=== PATIENT | male | born 1955 | race Caucasian/White ===

== ENCOUNTER 2022-10-06 10:11 | Emergency (ER) | payer BC ==
[2022-10-06 10:32] LABS: Absolute Lymphocytes (CBC) 1.8 K/uL (0.7-4.9); Hematocrit 45.4 % (39.6-49.0); Lymphocytes % 27.2 % (15.3-44.8); MCV 83.8 fL (80-100); MPV 7.4 fL (7.6-11.3); RBC Red Blood Cell Count 5.42 M/uL (4.33-5.43)
[2022-10-06 10:46] LABS: Protime INR 0.96
[2022-10-06 10:48] LABS: Potassium 3.6 mmol/L (3.5-5.1)
--- NOTE | 2022-10-06 10:51 | RAD REPORT ---
EXAM DESCRIPTION: CT - Ct Stroke Brain Wo Cont - 10/06/2022 10:44 am CLINICAL HISTORY: Facial droop COMPARISON: none TECHNIQUE: Computed axial tomography of the head was obtained. All CT scans are performed using dose optimization technique as appropriate and may include automated exposure control or mA/KV adjustment according to patient size. FINDINGS: An intracranial bleed is not seen . The ventricles are normal in caliber. No extra-axial fluid collection is noted. Mild low-density within periventricular, deep and subcortical white matter likely ischemic changes se condary to small vessel disease Fluid within the sinuses/ mastoids is not seen. IMPRESSION: No acute intracranial abnormality is seen. If patient's symptoms persist MRI of the bra in would be recommended. Millicent of the emergency room was notified at 10:31 a.m. October 06, 2022
--- NOTE | 2022-10-06 11:08 | ER ---
Nurse's Notes [facility] [place] Name: Clemente Moses Age: 67 yrs Sex: Male : 1955 Arrival Date: 10/06/2022 Time: 10:13 Bed 15 Private MD: Diagnosis: Michael's palsy Presentation: 10/06 10:15 Chief complaint: Patient states: Smile not symmetrical, mouth drooping, unable to sip ll1 out of straw since 1715 yesterday. No pain. Coronavirus screen: Vaccine status: Patient reports receiving the 2nd dose of the covid vaccine. Client denies travel out of the [place] in the last 14 days. At this time, the client does not indicate any symptoms associated with coronavirus-19. Ebola Screen: Patient denies travel to an Ebola-affected area in the 21 days before illness onset. An acute neurological deficit is present. The charge nurse has been notified. Initial Sepsis Screen: Does the patient meet any 2 criteria? No. Patient's initial sepsis screen is negative. Does the patient have a suspected source of infection? No. Patient's initial sepsis screen is negative. Risk Assessment: Do you want to hurt yourself or someone else? Patient reports no desire to harm self or others. Onset of symptoms was October 05, 2022. 10:15 Method Of Arrival: Ambulatory ll1 10:15 Acuity: JUANITA 2 ll1 10:57 Pre-hospital glucose is not applicable to this patient. 1 Triage Assessment: 10:17 The onset of the patients symptoms was October 05, 2022 at 17:15. General: Appears in ll1 no apparent distress. Behavior is calm, cooperative, appropriate for age. Pain: Denies pain. Neuro: Facial droop on left, Reports L side of mouth not moving well. . Stroke Activation: Symptom onset > 6 hours Physician: Stroke Attending; Name: ; Notified At: ; Arrived At: Physician: Chief Stroke Resident; Name: ; Notified At: ; Arrived At: Physician: Stroke Resident; Name: ; Notified At: ; Arrived At: Physician: ED Attending; Name: Elysia Martinez; Notified At: ; Arrived At: Physician: ED Resident; Name: ; Notified At: ; Arrived At: Historical: - Allergies: 10:14 No Known Allergies; ll1 - PMHx: 10:14 Hypertensive disorder; Diabetes mellitus; Hypercholesterolemia; ll1 - Immunization history:: Client reports receiving the 2nd dose of the Covid vaccine. - Social history:: Smoking status: Patient denies any tobacco usage or history of. - Family history:: not pertinent. - Hospitalizations: : No recent hospitalization is reported. Screenin:56 Abuse screen: Denies threats or abuse. Nutritional screening: No deficits noted. ll1 Tuberculosis screening: No symptoms or risk factors identified. Fall Risk IV access (20 points). Total Bhandari Fall Scale indicates No Risk (0-24 pts). Assessment: 10:55 VAN Scoring: Arm Drift: Patients demonstrates NO arm weakness. Patient is VAN Negative. ll1 Aphasia: No aphasia noted. Patient has been NPO before screening. The patient is alert, and able to follow commands. The patient does not exhibit slurred or garbled speech. The patient is not exhibiting difficulty speaking. The patient does not exhibit difficulty understanding words. The patient is able to swallow own secretions with no drooling or need for suction. Patient tolerated one teaspoon of water. No drooling, immediate coughing, gurgling, or clearing of the throat was noted. The patient tolerated 90mL of water. No drooling, immediate coughing, gurgling, or clearing of the throat was noted. The patient passed the bedside swallow screening. Oral medications may be given as ordered. Contact Physician for further diet orders. Provider notified of bedside swallow screening results: Steve Martinez MD. TNKase (Tenecteplase) Screening: Indications: Treatment will start within 4.5 hours onset of symptoms: Yes. 11:22 Reassessment: No changes from previously documented assessment. Patient and/or family ll1 updated on plan of care and expected duration. Pain level reassessed. Patient is alert, oriented x 3, equal unlabored respirations, skin warm/dry/pink. Vital Signs: 10:15 BP 204 / 87; Pulse 87; Resp 18; ll1 10:56 BP 164 / 88; Pulse 79; ll1 10:56 Temp 98.0; Pulse Ox 95% ; ll1 11:21 BP 171 / 96; Pulse 79; Resp 18; Pulse Ox 95% ; Pain 0/10; ll1 NIH Stroke Scale Scores: 10:55 NIHSS Score: 0 ll1 ED Course: 10:13 Patient arrived in ED. am2 10:14 Atilio Lunsford, RN is Primary Nurse. ll1 10:14 Arm band placed on Patient placed in an exam room, on a stretcher. ll1 10:17 Triage completed. ll1 10:20 Steve Martinez MD is Attending Physician. rn 10:44 Ct Stroke Brain Wo Cont In Process Unspecified. EDMS 10:57 Patient has correct armband on for positive identification. Bed in low position. Call ll1 light in reach. Side rails up X2. Client placed on continuous cardiac and pulse oximetry monitoring. NIBP monitoring applied. ekg monitor tech on. 10:57 No provider procedures requiring assistance completed. Patient did not have IV access ll1 during this emergency room visit. 11:07 Obed Myers MD is Referral Physician. rn Administered Medications: No medications were administered Medication: 10:57 VIS not applicable for this client. ll1 Point of Care Testing: Blood Glucose: 10:57 Blood Glucose: 187 mg/dL; ll1 Ranges: Outcome: 11:07 Discharge ordered by . rn 11:21 Discharged to home ambulatory. ll1 11:21 Condition: stable 11:21 Discharge instructions given to patient, family, Instructed on discharge instructions, follow up and referral plans. medication usage, Demonstrated understanding of instructions, follow-up care, medications, Prescriptions given X 1. 11:22 Patient left the ED. ll1 NIH Stroke Scale - NIH Stroke Score Date: 10/06/2022 Time: 10:55 Total Score = 0 1a. Level of Consciousness (LOC) - 0(Alert) 1b. Level of Consciousness (LOC) (Month \T\ Age) - 0(Both) 1c. LOC Commands (Open \T\ Closes Eyes/Bone Char Kiln Operator) - 0(Both) 2. Best Gaze (Lateral Gaze Paresis) - 0(Normal) 3. Visual Field Loss - 0(No visual loss) 4. Facial Palsy - 0(Normal) 5a. Left Arm: Motor (10-second hold) - 0(No drift) 5b. Right Arm: Motor (10-second hold) - 0(No drift) 6a. Left Leg: Motor (5-second hold - always test supine) - 0(No drift) 6b. Right Leg: Motor (5-second hold - always test supine) - 0(No drift) 7. Limb Ataxia (finger/nose \T\ heel/laboy - test with eyes open) - 0(Absent) 8. Sensory Loss (pinprick arms/legs/face) - 0(Normal) 9. Best Language: Aphasia (description/naming/reading) - 0(No aphasia) 10. Dysarthria (speech clarity - read or repeat words) - 0(Normal) 11. Extinction and Inattention (visual/tactile/auditory/spatial/personal) - 0(No abnormality) Initials: ll1 Signatures: Dispatcher [employer] EDSteve Rasheed MD MD rn Moreno, Amanda am2 Lewis, Lynsay, RN RN ll1
--- NOTE | 2022-10-06 11:08 | EDPHYS ---
Physician Documentation [facility] Name: Clemente Moses Age: 67 yrs Sex: Male : 1955 Arrival Date: 10/06/2022 Time: 10:13 Bed 15 Private MD: ED Physician Steve Martinez HPI: 10/06 11:03 This 67 yrs old Male presents to ER via Ambulatory with complaints of left facial rn weakness. 11:03 The patient's problem is reported as a facial droop, on left. Onset: The rn symptoms/episode began/occurred yesterday. Duration: The episode is continuous. Context: the episode(s) was witnessed, by family, occurred ranch, occurred while the patient was at rest, Possible contributing factors include: Patient is a know diabetic. The symptoms are alleviated by nothing. The symptoms are aggravated by nothing. Severity of symptoms: At their worst the symptoms were moderate in the emergency department the symptoms are unchanged. The patient has not experienced similar symptoms in the past. The patient has not recently seen a physician. Pt became aware of left sided facial weakness yesterday, no trauma, no fever, no other neurological complaint, no facial tingling, no vision problem. Poorly controlled diabetic and not taking his oral meds, just insulin. . Historical: - Allergies: 10:14 No Known Allergies; ll1 - PMHx: 10:14 Hypertensive disorder; Diabetes mellitus; Hypercholesterolemia; ll1 - Immunization history:: Client reports receiving the 2nd dose of the Covid vaccine. - Social history:: Smoking status: Patient denies any tobacco usage or history of. - Family history:: not pertinent. - Hospitalizations: : No recent hospitalization is reported. ROS: 11:03 Constitutional: Negative for fever, chills, and weight loss, Eyes: Negative for injury, rn pain, redness, and discharge, Neck: Negative for injury, pain, and swelling, Cardiovascular: Negative for chest pain, palpitations, and edema, Respiratory: Negative for shortness of breath, cough, wheezing, and pleuritic chest pain, Abdomen/GI: Negative for abdominal pain, nausea, vomiting, diarrhea, and constipation, Back: Negative for injury and pain, MS/Extremity: Negative for injury and deformity, Skin: Negative for injury, rash, and discoloration, Neuro: Negative for headache, numbness, tingling, and seizure. Exam: 11:03 Constitutional: This is a well developed, well nourished patient who is awake, alert, rn and in no acute distress. Head/Face: Normocephalic, atraumatic. Eyes: Pupils equal round and reactive to light, extra-ocular motions intact. Lids and lashes normal. Conjunctiva and sclera are non-icteric and not injected. Cornea within normal limits. Periorbital areas with no swelling, redness, or edema. Cardiovascular: Regular rate and rhythm. No pulse deficits. Respiratory: No increased work of breathing, no retractions or nasal flaring. Abdomen/GI: Soft, non-tender Skin: Warm, dry with normal turgor. Normal color with no rashes, no lesions, and no evidence of cellulitis. MS/ Extremity: Pulses equal, no cyanosis. Neurovascular intact. Full, normal range of motion. Equal circumference. Neuro: Awake and alert, GCS 15, oriented to person, place, time, and situation. + left upper and lower facial weakness. Motor strength 5/5 in all extremities. Sensory grossly intact. Cerebellar exam normal. Normal gait. 11:08 ECG was reviewed by the Attending Physician. rn Vital Signs: 10:15 BP 204 / 87; Pulse 87; Resp 18; ll1 10:56 BP 164 / 88; Pulse 79; ll1 10:56 Temp 98.0; Pulse Ox 95% ; ll1 11:21 BP 171 / 96; Pulse 79; Resp 18; Pulse Ox 95% ; Pain 0/10; ll1 NIH Stroke Scale Scores: 10:55 NIHSS Score: 0 ll1 MDM: 10:20 Patient medically screened. rn 10:34 ED course: CT head neg per radiology. . rn 11:03 Differential diagnosis: CVA, TIA, metabolic disorder, bells palsy. Data reviewed: vital rn signs, nurses notes, lab test result(s), EKG, radiologic studies, CT scan, and as a result, I will discharge patient. Counseling: I had a detailed discussion with the patient and/or guardian regarding: the historical points, exam findings, and any diagnostic results supporting the discharge/admit diagnosis, lab results, radiology results, the need for outpatient follow up, to return to the emergency department if symptoms worsen or persist or if there are any questions or concerns that arise at home. Special discussion: I discussed with the patient/guardian in detail that at this point there is no indication for admission to the hospital. It is understood, however, that if the symptoms persist or worsen the patient needs to return immediately for re-evaluation. Based on the history and exam findings, there is no indication for further emergent testing or inpatient evaluation. I discussed with the patient/guardian the need to see the neurologist for further evaluation of the symptoms. I discussed with the patient/guardian the need to see the primary care provider for further evaluation of the symptoms. 11:03 ED course: CT head without acute findings, left upper and lower facial weakness rn consistent with bells palsy, recommend better glucose control and neuro f/u. . 11:03 ED course: Also told him to tape eye shut to avoid complications.. rn 10/06 10:21 Order name: Basic Metabolic Panel; Complete Time: : rn 10/06 10:21 Order name: CBC with Diff; Complete Time: : 10/06 10:21 Order name: Protime (+inr); Complete Time: : rn 10/06 10:21 Order name: Ptt, Activated; Complete Time: : rn 10/06 10:34 Order name: Glucose, Ancillary Testing; Complete Time: : EDMS 10/06 10:44 Order name: Ct Stroke Brain Wo Cont; Complete Time: :55 EDMS 10/06 10:21 Order name: EKG; Complete Time: 10: rn 10/06 10:21 Order name: Accucheck; Complete Time: : rn 10/06 10:21 Order name: Cardiac monitoring; Complete Time: rn 10/06 10:21 Order name: EKG - Nurse/Tech; Complete Time: rn 10/06 10:21 Order name: Labs collected and sent; Complete Time: : rn 10/06 10:21 Order name: O2 Per Protocol; Complete Time: : rn 10/06 10:21 Order name: O2 Sat Monitoring; Complete Time: rn 10/06 10:21 Order name: Stroke Swallow Screen; Complete Time: 10:51 rn EC:08 Rate is 82 beats/min. Rhythm is regular. QRS [place] is Normal. OR interval is normal. QRS rn interval is normal. QT interval is normal. No Q waves. T waves are Normal. No ST changes noted. Clinical impression: NSR w/ Non-specific ST/T Changes. Interpreted by me. Reviewed by me. Administered Medications: No medications were administered Point of Care Testing: Blood Glucose: 10:57 Blood Glucose: 187 mg/dL; ll1 Ranges: Critical Glucose Levels:Adult <50 mg/dl or >400 mg/dl <40 mg/dl or >180 mg/dl Disposition Summary: 10/06/22 11:07 Discharge Ordered Location: Home rn Problem: new rn Symptoms: are unchanged rn Condition: Stable rn Diagnosis - Michael's palsy rn Followup: rn - With: Obed Myers MD - When: As needed - Reason: Recheck today's complaints, Continuance of care, Re-evaluation by your physician Discharge Instructions: - Discharge Summary Sheet rn - Michael Palsy, Adult rn Forms: - Medication Reconciliation Form rn - Thank You Letter rn - Antibiotic furniture packer - Prescription Opioid Use rn - Work release form ll1 Prescriptions: - Medrol (Gerald) 4 mg Oral Tablets, Dose Pack - take 1 tablet by ORAL route as directed - follow package instructions; 1 rn packet; Refills: 0, Product Selection Permitted NIH Stroke Scale - NIH Stroke Score Date: 10/06/2022 Time: 10:55 Total Score = 0 1a. Level of Consciousness (LOC) - 0(Alert) 1b. Level of Consciousness (LOC) (Month \T\ Age) - 0(Both) 1c. LOC Commands (Open \T\ Closes Eyes/Shoe Stitcher) - 0(Both) 2. Best Gaze (Lateral Gaze Paresis) - 0(Normal) 3. Visual Field Loss - 0(No visual loss) 4. Facial Palsy - 0(Normal) 5a. Left Arm: Motor (10-second hold) - 0(No drift) 5b. Right Arm: Motor (10-second hold) - 0(No drift) 6a. Left Leg: Motor (5-second hold - always test supine) - 0(No drift) 6b. Right Leg: Motor (5-second hold - always test supine) - 0(No drift) 7. Limb Ataxia (finger/nose \T\ heel/laboy - test with eyes open) - 0(Absent) 8. Sensory Loss (pinprick arms/legs/face) - 0(Normal) 9. Best Language: Aphasia (description/naming/reading) - 0(No aphasia) 10. Dysarthria (speech clarity - read or repeat words) - 0(Normal) 11. Extinction and Inattention (visual/tactile/auditory/spatial/personal) - 0(No abnormality) Initials: ll1 Signatures: Dispatcher [employer] Steve Graf MD MD rn Lewis, Lynsay, RN RN ll1 Corrections: (The following items were deleted from the chart) 11:21 10:21 IV Saline Lock ordered. joslyn ll1
[2022-10-06 11:34] VITALS: TEMP 98; O2SAT 95
[2022-10-06 11:35] VITALS: BP 171/96
--- NOTE | 2022-10-07 13:57 | EKG ---
Test Date: 2022-10-06 Test Time: 10:49:10 Merchandise Displayer: LML MEASUREMENT RESULTS: Intervals: Rate: 82 SC: 192 QRSD: 74 QT: 370 QTc: 432 [place]: P: 41 SC: 192 QRS: -22 T: 10 INTERPRETIVE STATEMENTS: Normal sinus rhythm Inferior infarct, age undetermined Cannot rule out Anterior infarct, age undetermined Abnormal ECG Compared to ECG 05/17/2012 11:42:08 Myocardial infarct finding now present Electronically Signed On 10-07-22 13:56:01 SYSTEM ADMINISTRATION ADVISOR by George Roman
== END 2022-10-06 11:22 | disposition home or self-care (01) ==
LOC: ER 10:11
DX: G51.0 Bell's palsy (principal); I10 Essential (primary) hypertension; E11.9 Type 2 diabetes mellitus without complications
CPT/HCPCS: 36415; 70450; 80048; 82947; 85025; 85610; 85730; 93005; 99284